=== PATIENT | male | born 1985 | race Caucasian/White ===

== ENCOUNTER 2019-11-06 21:32 | Emergency (ER) | payer BC, SELFPAY ==
[2019-11-06 21:47] VITALS: BP 147/85; PULSE 83; RESP 16; TEMP 36.9; O2SAT 100; BMI 25.8
[2019-11-06] MEDS: ACETAMINOPHEN 325 MG TABLET 650 MG PO (22:02)
--- NOTE | 2019-11-06 23:00 | ED.DENTAL ---
HPI - Dental/Oral General Chief complaint: Dental/Oral Stated complaint: LEFT SIDE TOOTH PAIN Time Seen by Provider: 11/06/19 23:00 Source: patient Mode of arrival: Ambulatory Limitations: no limitations History of Present Illness HPI Narrative: 34-year-old male daily smoker with thick prior history of dental problems presents with his significant other a chief complaint of 2 teeth causing pain over quite some time that got significantly worse over the course of the day. He denies any purulent drainage, fever or facial swelling. He denies any chest pain or shortness of. Denies any nausea, vomiting or diarrhea. Related Data Previous Rx's Medication Instructions Recorded amoxicillin-pot clavulanate 1 tab PO BID #20 tab 11/06/19 [Augmentin] ketorolac 10 mg PO Q6H PRN #14 tab 11/06/19 Allergies Allergy/AdvReac Type Severity Reaction Status Date / Time No Known Drug Allergies Allergy Verified 11/06/19 21:51 Review of Systems Constitutional Constitutional: Denies chills, Denies fatigue, Denies fever(s), Denies frequent falls, Denies lethargy and Denies weakness Eyes Eyes: Denies change in vision, Denies eye discharge, Denies irritation and Denies loss of vision ENT Ears, Nose, Mouth, and Throat: Denies change in voice, Reports dental pain, Denies dizziness, Denies neck pain, Denies sore throat and Denies throat swelling Cardiovascular Cardiovascular: Denies chest pain, Denies irregular heart rhythm, Denies lightheadedness, Denies palpitations, Denies dyspnea, Denies dyspnea on exertion and Denies orthopnea Respiratory Respiratory: Denies cough, Denies dyspnea, Denies dyspnea on exertion and Denies wheezing Gastrointestinal Gastrointestinal: Denies abdominal pain, Denies change in bowel habits, Denies diarrhea, Denies nausea and Denies vomiting Musculoskeletal Musculoskeletal: Denies neck pain and Denies numbness Integumentary/Breasts Skin/Breast: Denies pruritus, Denies erythema, Denies rash and Denies wounds Neurologic Neurologic: Denies behavioral changes, Denies confusion, Denies dizziness, Denies frequent falls, Denies loss of vision, Denies numbness and Denies weakness Psychiatric Psychiatric: Denies anxiety, Denies behavioral changes, Denies confusion, Denies depression, Denies homicidal ideation and Denies suicidal ideation Endocrine Endocrine: Denies fatigue, Denies flushing and Denies palpitations Hematologic/Lymphatic Hematologic/Lymphatic: Denies easy bruising Allergic/Immunologic Allergic/Immunologic: Denies urticaria, Denies throat swelling and Denies wheezing Patient History Social History Smoking Status: Current every day smoker Smoking Status: Current every day smoker alcohol intake frequency: 0-2 drinks per day Substance Use Type: does not use Exam Narrative Exam Narrative: GEN: AOx3 and in mild distress EYES: Pupils are equal, round, and reactive to light and accommodation. Extraoccular muscles are intact bilaterally. There is no subconjunctival hemorrhage or exudate. ENT: No facial swelling. Poor denition throughout. No intraoral swelling or drainage. CHEST: Lungs are clear to auscultation bilaterally and free of wheezes, rales, or rhonchi. Heart rate is regular rhythm, there are no murmurs, clicks, rubs, or gallops. There is no chest wall tenderness. ABD: Abdomen is soft and nontender. There is no guarding or rebound. Bowel sounds are normal in all 4 quadrants. There is no mass or organomegaly. EXT: Full painless ROM of all extremities with no loss of sensation or strength. SKIN: Warm, pink, and dry. No erythema or rash Initial Vital Signs Initial Vital Signs: Vital Signs Temperature 98.4 F 11/06/19 21:47 Pulse Rate 83 11/06/19 21:47 Respiratory Rate 16 11/06/19 21:47 Blood Pressure 147/85 H 11/06/19 21:47 Pulse Oximetry 100 11/06/19 21:47 Procedures Nerve Block Nerve Block 1: Time out performed: Yes Local Anesthetic: bupivacaine 0.25% and with epi Amount of anesthesia used (mL): 6 Side: left Intraoral Nerve Block: superior alveolar and inferior alveolar Patient Tolerated Procedure: Well Complications: none Course Course Course Narrative: patient had significant improvement with above stated procedure Orders Ordered: Discontinued Medications Acetaminophen (Tylenol) 650 mg PO NOW ONE Stop: 11/06/19 22:00 Last Admin: 11/06/19 22:02 Dose: 650 mg Documented by: EVAN Amoxicillin/Clavulanate Potassium (Augmentin 875-125 Mg) 1 tab PO NOW ONE Stop: 11/06/19 23:11 Last Admin: 11/06/19 23:22 Dose: 1 tab Documented by: SUDHA Bupivacaine HCl/Epinephrine Bitart (Sensorcaine 0.5% W/ Epi (Pf)) 5 ml SUBCUT NOW ONE Stop: 11/06/19 23:11 Last Admin: 11/06/19 23:23 Dose: 5 ml Documented by: SUDHA Ibuprofen (Advil) 800 mg PO NOW ONE Stop: 11/06/19 21:55 Last Admin: 11/06/19 22:12 Dose: Not Given Documented by: EVAN Vital Signs Vital signs: Vital Signs - 8 hr 11/06/19 21:47 11/06/19 23:38 Temperature 98.4 F Pulse Rate 83 76 Respiratory Rate 16 16 Blood Pressure 147/85 H 136/75 Pulse Oximetry 100 97 Discharge Plan Departure Patient Disposition: Home Clinical Impression: Toothache, Dental caries Discharge Date/Time: 11/06/19 23:38 Instructions: Tooth Decay, DI for Dental Pain Activity Restrictions/Additional Instructions: *You have been diagnosed with [tooth pain with dental caries, no obvious abscess] *What to do: *Take medications as directed: Prescriptions were sent to [facility] at your request *Follow up with your primary care provider in 2-3 days, call for an appointment. Let them know you were seen in the Emergency Department and that we ask that you be seen in follow up *Return to ER if you should have any new, worsening or concerning symptoms] Prescriptions: New ketorolac 10 mg tablet 10 mg PO Q6H PRN (Reason: pain) Qty: 14 RF: 0 amoxicillin-pot clavulanate [Augmentin] 875-125 mg tablet 1 tab PO BID Qty: 20 RF: 0 Referrals: Jet Orozco, MARGO [Physician] -
[2019-11-06] MEDS: AMOXICILLIN/CLAV 875/125 MG 1 TAB PO (23:22)
[2019-11-06] MEDS: BUPIVACAINE 0.5% W/ EPI (PF) 30 ML VIAL 5 ML SUBCUT (23:23)
[2019-11-06 23:38] VITALS: BP 136/75; PULSE 76; RESP 16; O2SAT 97
== END 2019-11-06 23:38 | disposition home or self-care (01) ==
PROVIDERS: Emergency Provider Emergency Medicine; Family Provider Physician Assistant
DX: K02.9 Dental caries, unspecified (principal)
CPT/HCPCS: 64450; 99283